=== PATIENT | female | born 1970 | race Two or more races ===

== ENCOUNTER 2024-07-08 23:21 | Emergency (ER) | payer OTHER ==
[~2024-07-08] VITALS: Ht 165.1 cm; Wt 71.7 kg
[2024-07-08] MEDS ORDERED: SYNTHROID75 MCG PO (23:25)
[2024-07-09] MEDS ORDERED: RINGERS SOLUTION,LACTATED 1,000 ML IV STA (00:31)
[2024-07-09 01:02] LABS: HEMATOCRIT 37.3 % (36.0-45.00); HEMOGLOBIN 12.9 g/dL (12.0-15.00); MEAN CELL VOLUME 84.4 fL (80.00-100.00); MEAN CORPUSCULAR HEMOGLOBIN 29.1 pg (27.00-32.0); MEAN CORPUSCULAR HGB CONC 34.5 g/dl (32.0-36.0); PLATELET COUNT 299 K/uL (150-450); RED BLOOD COUNT 4.42 M/uL (4.00-6.00); RED CELL DISTRIBUTION WIDTH 13.9 % (11.5-14.5)
[2024-07-09 01:23] LABS: PH,URINE 5.5 (5.0-8.0); URINE APPEARANCE Cloudy; URINE BILIRRUBIN Small (NEGATIVE); URINE BLOOD Large; URINE COLOR Red; URINE GLUCOSE Negative (NEGATIVE); URINE KETONE Trace (NEGATIVE); URINE LEUKOCYTE Moderate; URINE NITRATE Negative; URINE UROBILINOGEN 0.2 E.U./dl
[2024-07-09 01:27] LABS: INR 0.97; PARTIAL THROMBOPLASTIN TIME 31.2 SECONDS (22.0-34.0); PROTHROMBIN TIME 10.6 SECONDS (9.0-11.5)
[2024-07-09 01:27] LABS: URINE BACTERIA 289.7 uL (0.0-1933); URINE EPITHELIAL CELLS 12.5 uL (0.0-38.8); URINE WBC 76.8 uL (0.0-23.2)
[2024-07-09 01:31] LABS: ALBUMIN 4.1 gm/dL (3.4-5.0); BILIRUBIN TOTAL 0.48 mg/dL (0.3-1.2); CALCIUM 9.7 mg/dL (8.5-10.1); CREATININE SERUM 1.1 mg/dL (0.55-1.02); GFR 52.16; GLOBULINA 3.5 G/DL (2.4-3.5); POTASSIUM 3.97 mEq/L (3.5-5.1); TOTAL PROTEIN 7.6 gm/dL (6.4-8.2)
[2024-07-09 02:41] LABS: URINE CAST 0.45 uL (0.0-1.40); URINE PROTEIN 100 (NEGATIVE)
[2024-07-09] MEDS ORDERED: CIPROFLOXACIN IN 5 % DEXTROSE 400 MG/200 ML PIGGYBAG IV STA (04:32)
[2024-07-09] MEDS ORDERED: CIPROFLOXACIN IN 5 % DEXTROSE 400 MG/200 ML PIGGYBAG IV ONE (05:03)
[2024-07-09] MEDS ORDERED: TAMS0.4C PO (11:20)
[2024-07-09] MEDS ORDERED: BACTRIM DS TAB1 EACH PO (11:20)
[2024-07-09] MEDS ORDERED: KETO10TA2 PO (11:20)
== END 2024-07-09 | disposition home or self-care (01) ==
LOC: ER 23:22
DX: N28.89 Other specified disorders of kidney and ureter (principal); R31.0 Gross hematuria; N23 Unspecified renal colic